=== PATIENT | male | born 1990 | race Caucasian/White ===

== ENCOUNTER 2016-10-12 22:44 | Emergency (ER) | payer MEDICAID ==
[~2016-10-12] VITALS: Ht 160 cm; Wt 66.2 kg
[2016-10-12 22:54] VITALS: BP 110/66
--- NOTE | 2016-10-13 00:16 | NUR ---
PT TAKEN TO OF
--- NOTE | 2016-10-13 00:20 | NUR ---
Dr. Shaffer evaluating patient
[2016-10-13] MEDS ORDERED: KETOROLAC 60 MG/2 ML VIAL IM ONE (00:25)
[2016-10-13 01:01] VITALS: BP 117/62
--- NOTE | 2016-10-13 01:01 | NUR ---
Patient discharged with v/s stable. Written and verbal after care instructions given and explained. Patient alert, oriented and verbalized understanding of instructions. Ambulatory with steady gait. All questions addressed prior to discharge. ID band removed. Patient advised to follow up with PMD. Rx of NAPROXEN OFFERED BUT PT REFUSED TO TAKE IT. Patient educated on indication of medication including possible reaction and side effects. Opportunity to ask questions provided and answered. PT REFUSED TO SIGN D/C PAPERWORK.
== END 2016-10-13 01:01 | disposition home or self-care (01) ==
LOC: MED 22:44
DX: S33.5XXA Sprain of ligaments of lumbar spine, initial encounter (principal); X50.0XXA Overexertion from strenuous movement or load, initial encounter; Y93.89 Activity, other specified; Y92.89 Other specified places as the place of occurrence of the external cause; Y99.8 Other external cause status
CPT/HCPCS: 96372; 99283; J1885

== ENCOUNTER 2016-11-10 13:57 | Emergency (ER) | payer SELFPAY ==
--- NOTE | 2016-11-10 14:20 | NUR ---
PATIENT LEFT WITHOUT BEING SEEN BY DR. GARZA. NO FURTHER CARE PROVIDED FOR PATIENT.
== END 2016-11-10 14:20 | disposition left against medical advice (07) ==
LOC: MED 13:57
DX: M79.671 Pain in right foot (principal); Z53.21 Procedure and treatment not carried out due to patient leaving prior to being seen by health care provider